=== PATIENT | female | born 2000 | race Caucasian/White ===

== ENCOUNTER → 2020-11-24 11:59 | Outpatient (BNVA) | payer OTHER, SELFPAY | PROVIDERS: PCP Family Medicine; Visit Provider Family Medicine | DX: F23 Brief psychotic disorder (principal); Z76.89 Persons encountering health services in other specified circumstances; Z68.22 Body mass index [BMI] 22.0-22.9, adult; Z71.89 Other specified counseling | CPT/HCPCS: 80053; 80061; 83036; 84443; 85025 ==